=== PATIENT | male | born 1980 | race African-American/Black ===

== ENCOUNTER 2020-01-15 11:45 | Outpatient (REF) | payer OTHER, SELFPAY ==
[2020-01-15 14:02] LABS: Hematocrit 45.1 % (42-52); Hemoglobin 14.9 g/dl (14.0-18.0); Mean Corpuscular Hemoglobin 30.3 pg (27.0-33.0); Mean Corpuscular Volume 91.7 fL (80-98); Mean Platelet Volume 10.3 fL (9.4-12.4); Platelet Count 309 X10*3/uL (160-400); Red Blood Count 4.92 X10*6/uL (4.60-5.80); Red Cell Distribution Width 12.8 % (11.0-16.0)
[2020-01-15 14:25] LABS: Glucose Urine UA NEG (NEG); Leukocyte Esterase Urine NEG (NEG); Nitrite Urine NEG (NEG); Specific Gravity - Urine >= 1.030 (1.005-1.025); Urine Blood NEG (NEG); Urine Ketones NEG (NEG); Urine Protein NEG (NEG-TRACE)
[2020-01-15 14:29] LABS: Appearance Urine CLEAR; Color Urine YELLOW
[2020-01-15 14:41] LABS: Alanine Aminotransferase 31 U/L (0-40); Albumin Level 4.6 g/dL (3.5-5.0); Alkaline Phosphatase 54 U/L (39-117); Anion Gap 10 (12-20); Aspartate Amino Transferase 26 U/L (5-37); Bilirubin Total 0.9 mg/dL (0.0-1.0); Blood Urea Nitrogen 13 mg/dL (9-16); Calcium 9.6 mg/dL (8.4-10.2); Carbon Dioxide 31 mmol/L (22-29); Chloride 102 mmol/L (96-108); Cholesterol 230 mg/dL; Estimated Glomerular Filt Rate > 60; Glucose Fasting 93 mg/dL (60-99); HDL Cholesterol 53 mg/dL; LDL Cholesterol Calculated 152 mg/dl; Potassium 4.8 mmol/l (3.3-5.1); Sodium 138 mmol/L (135-145); Total Protein 7.9 g/dL (6.5-8.0); Triglycerides 127 mg/dL
== END 2020-01-15 11:46 | disposition home or self-care (01) ==
LOC: HO.HMGCLDS 11:45
PROVIDERS: PCP Internal Medicine; Visit Provider Internal Medicine
DX: E78.2 Mixed hyperlipidemia (principal); I10 Essential (primary) hypertension; Z00.00 Encounter for general adult medical examination without abnormal findings
CPT/HCPCS: 36415; 80053; 80061; 81003; 85027

== ENCOUNTER 2020-05-06 08:00 | Outpatient (RCR) | payer OTHER, SELFPAY ==
--- NOTE | 2020-03-04 09:42 | MHC.PT.EP ---
[facility] [place] [facility] [place] [facility] [place] [facility] [address] Breanna Munoz [address] [phone] F: [phone] F: [phone] F: [phone] F: [phone] Physical Therapy Plan of Care Date of Evaluation: 03/04/20 Date of Surgery: Diagnosis: Patient is a 40 yo male presenting to skilled PT with a script for L hip trochanteric bursitis. Assessment: Patient is a 40 yo male presenting to skilled PT with a script for L hip trochanteric bursitis. Pt had a telehealth with Dr. Andrew on 02/18 with c/o L hip pain that is worse when lying on that side and walking. Pain has been ongoing for about 2 months without injury. Pt did state that he started to exercise on the elliptical yesterday but is not doing any other exercises. His pain is located laterally and on occasion it can radiate into the buttock. He describes his pain as occasional, achy, sharp and pulsating depending on the time and what he is doing (reports worse after resting for time). Pain comes and goes. Denies leg pain or numbness/tingling. Denies crepitus. Functionally, he states it slows me down from time to time but does not limit him in anything. 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 Assessment reveals pain that ranges from 0 to 8/10 (mainly with lying on the L side). He demos decreased L hip ROM with hamstring length and end range pain, decreased glut strength, core strength and hip strength. He demos s/s consistent with SIJ dysfunction with tests. He is tender along L PSIS, L ITB and L lumbar paraspinals. He is functionally impaired with sleeping and exercising to the extent that he wants to. He is a good candidate for skilled PT 2x/wk for 6wks. 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 Manual therapy to restore motion and function. Therapeutic exercise to improve strength and flexibility. Neuromuscular re-education for posture and balance. Therapeutic activities to return to functional activities of daily living. Electronically signed by: Ghazala Sánchez PT Please sign and return to therapist. Thank you for your referral.
--- NOTE | 2020-05-07 10:33 | MHC.PT.DC ---
[facility] [place] Office [place] [facility] [place] [facility] [address] Breanna Munoz [address] [phone] F: [phone] F: [phone] F: [phone] F: [phone] Physical Therapy Discharge Report Diagnosis: Patient is a 40 yo male presenting to skilled PT with a script for L hip trochanteric bursitis. Date of Surgery: Date of Evaluation: 03/04/20 Date of Discharge: 05/07/20 Treatments to Date: 14 Cancellations to Date: 0 No Shows to Date: 0 Discharge Status: Achieved Goals Improved Function Independent with HEP Discharge Summary: Pt HAS PROGRESSED NICELY IN PT- HE MET HIS GOALS- INDEP W HEP, WFL PELVIC SYMM, WFL CORE STRENGTH, IMPROVED LEs FLEXIBILITY , AND OVERALL RESOLVED PAIN. OF SIGNIFICANCE, Pt'S LEFT SCORE IMPROVED FROM 40/80 AT EVAL ON 03/04/20 TO A 79/80 AT D/C DATE. Electronically signed by: PravinPT Please sign and return to therapist. Thank you for your referral.
== END 2020-05-07 10:42 | disposition other institution (70) ==
LOC: HO.PTCHIC 08:00
PROVIDERS: PCP Internal Medicine; Visit Provider Internal Medicine
DX: M70.62 Trochanteric bursitis, left hip (principal)
CPT/HCPCS: 97110; 97112; 97140; 97161; 97530

== ENCOUNTER 2020-06-24 06:57 | Outpatient (REF) | payer OTHER, SELFPAY ==
[2020-06-24 12:08] LABS: Alanine Aminotransferase 21 U/L (0-40); Albumin Level 4.5 g/dL (3.5-5.0); Alkaline Phosphatase 63 U/L (39-117); Anion Gap 13 (12-20); Aspartate Amino Transferase 19 U/L (5-37); Bilirubin Total 1.1 mg/dL (0.0-1.0); Blood Urea Nitrogen 13 mg/dL (9-16); Calcium 9.8 mg/dL (8.4-10.2); Carbon Dioxide 29 mmol/L (22-29); Chloride 101 mmol/L (96-108); Cholesterol 222 mg/dL; Estimated Glomerular Filt Rate > 60; Glucose Fasting 82 mg/dL (60-99); HDL Cholesterol 47 mg/dL; LDL Cholesterol Calculated 157 mg/dl; Potassium 4.8 mmol/L (3.3-5.1); Sodium 138 mmol/L (135-145); Total Protein 7.5 g/dL (6.5-8.0); Triglycerides 91 mg/dL
== END 2020-06-24 06:58 | disposition home or self-care (01) ==
LOC: HO.HMGCLDS 06:57
PROVIDERS: PCP Internal Medicine; Visit Provider Internal Medicine
DX: Z00.00 Encounter for general adult medical examination without abnormal findings (principal); I10 Essential (primary) hypertension; E78.5 Hyperlipidemia, unspecified
CPT/HCPCS: 36415; 80053; 80061